=== PATIENT | female | born 1995 | race Caucasian/White ===

== ENCOUNTER 2017-01-17 20:51 | Emergency (ER) | payer SELFPAY ==
[~2017-01-17] VITALS: Ht 165.1 cm; Wt 63.6 kg
[2017-01-17] MEDS ORDERED: PREN-134 PO (21:02)
[2017-01-17 21:30] LABS: BASOPHILS % (AUTO) 0.3 % (0.0-2.0); EOSINOPHILS % (AUTO) 0.9 % (1.0-6.0); HEMATOCRIT 39.9 % (36-46); HEMOGLOBIN 13.7 g/dL (12.0-16.0); LYMPHOCYTES # (AUTO) 2.6 K/uL (1.0-4.8); LYMPHOCYTES % (AUTO) 24.5 % (22.0-44.0); MEAN CORPUSCULAR HEMOGLOBIN 31.4 pg (26.0-34.0); MEAN CORPUSCULAR HGB CONC 34.3 G/dL (31.0-37.0); MEAN CORPUSCULAR VOLUME 91 fL (80-100); MONOCYTES # (AUTO) 0.6 K/uL (0.1-1.0); MONOCYTES % (AUTO) 5.6 % (2.0-9.0); NEUTROPHILS # (AUTO) 7.3 K/uL (1.8-7.7); NEUTROPHILS % (AUTO) 68.7 % (40.0-70.0); RED BLOOD CELL COUNT(AUTO) 4.36 MIL/uL (4.00-5.20); RED CELL DISTRIBUTION WIDTH 12.2 % (11.5-14.5); WHITE BLOOD COUNT (AUTO) 10.6 K/uL (4.5-11.0)
[2017-01-17 21:53] LABS: PLATELET COUNT (AUTO) 149 K/uL (150-450)
[2017-01-17 22:07] LABS: APPEARANCE,URINE CLEAR (CLEAR); GLUCOSE, URINE (UA) NEGATIVE (NEGATIVE); KETONES,URINE NEGATIVE (NEGATIVE); LEUKOCYTE ESTERASE ,URINE NEGATIVE (NEGATIVE); OCCULT BLOOD,URINE TRACE (NEGATIVE); PROTEIN,URINE NEGATIVE (NEGATIVE)
[2017-01-17 22:09] LABS: ADD UA MICROSCOPIC YES
[2017-01-17 22:26] LABS: SQUAMOUS EPITHELIAL CELL,UR Few /LPF (None Seen)
[2017-01-17 22:28] LABS: RBC,URINE 0-2 /HPF (0-2); WBC,URINE 0-2 /HPF (0-5)
[2017-01-17 23:33] VITALS: BP 109/63
== END 2017-01-17 23:34 | disposition home or self-care (01) ==
LOC: EMS 20:54
DX: O26.891 Other specified pregnancy related conditions, first trimester (principal); R35.0 Frequency of micturition; Z3A.09 9 weeks gestation of pregnancy
CPT/HCPCS: 76801; 76817; 86901; 99285

== ENCOUNTER 2020-01-20 00:40 | Emergency (ER) | payer OTHER ==
[~2020-01-20] VITALS: Ht 167.6 cm; Wt 100.0 kg
[~2020-01-20 00:40] MED LIST: PREN-134 PO
[2020-01-20 00:42] VITALS: BP 102/70
[2020-01-20] MEDS ORDERED: IPRA4AER IH (01:38)
[2020-01-20] MEDS ORDERED: CEPHALEXIN MONOHYDRATE 500 MG CAPSULE PO ONE (02:45)
[2020-01-20] MEDS ORDERED: IBUPROFEN 600 MG TABLET PO ONE (02:45)
== END 2020-01-20 03:14 | disposition home or self-care (01) ==
LOC: EMS 00:40
DX: S93.401A Sprain of unspecified ligament of right ankle, initial encounter (principal); S80.861A Insect bite (nonvenomous), right lower leg, initial encounter; J45.909 Unspecified asthma, uncomplicated; Z91.018 Allergy to other foods; Z79.899 Other long term (current) drug therapy; X50.1XXA Overexertion from prolonged static or awkward postures, initial encounter; W57.XXXA Bitten or stung by nonvenomous insect and other nonvenomous arthropods, initial encounter; Y93.89 Activity, other specified; Y92.89 Other specified places as the place of occurrence of the external cause; Y99.8 Other external cause status
CPT/HCPCS: 29540

== ENCOUNTER 2020-06-19 14:41 | Emergency (ER) | payer OTHER ==
[~2020-06-19] VITALS: Ht 170.2 cm; Wt 84.1 kg
[~2020-06-19 14:41] MED LIST changes: +IPRA4AER IH
[2020-06-19 15:48] LABS: BASOPHILS % (AUTO) 0.7 % (0.0-2.0); EOSINOPHILS % (AUTO) 1.7 % (1.0-6.0); HEMATOCRIT 40.2 % (36-46); HEMOGLOBIN 13.7 g/dL (12.0-16.0); LYMPHOCYTES # (AUTO) 2.3 K/uL (1.0-4.8); LYMPHOCYTES % (AUTO) 31.4 % (22.0-44.0); MEAN CORPUSCULAR HEMOGLOBIN 30.7 pg (26.0-34.0); MEAN CORPUSCULAR HGB CONC 34.2 G/dL (31.0-37.0); MEAN CORPUSCULAR VOLUME 90 fL (80-100); MONOCYTES # (AUTO) 0.5 K/uL (0.1-1.0); MONOCYTES % (AUTO) 6.4 % (2.0-9.0); NEUTROPHILS # (AUTO) 4.4 K/uL (1.8-7.7); NEUTROPHILS % (AUTO) 59.8 % (40.0-70.0); PLATELET COUNT (AUTO) 152 K/uL (150-450); RED BLOOD CELL COUNT(AUTO) 4.48 MIL/uL (4.00-5.20); RED CELL DISTRIBUTION WIDTH 12.6 % (11.5-14.5)
[2020-06-19] MEDS ORDERED: FAMOTIDINE 20 MG TABLET PO ONE (16:00)
[2020-06-19] MEDS ORDERED: IBUPROFEN 600 MG TABLET PO ONE (16:00)
[2020-06-19] MEDS ORDERED: LIDOCAINE 5% TRANSDERMAL PATCH TD ONE (16:00)
[2020-06-19 16:05] LABS: ANION GAP 10 mmol/L (8-16); CARBON DIOXIDE 25 mmol/L (22-29); CHLORIDE 104 mmol/L (98-107); CREATININE 0.58 mg/dL (0.60-1.30); GLOMERULAR FILTR. RATE CALC > 60 mL/min (>60); GLUCOSE,RANDOM 112 mg/dL (70-110); POTASSIUM 3.8 mmol/L (3.5-5.1); SODIUM SERUM 139 mmol/L (136-145); UREA NITROGEN, BLOOD 12 mg/dL (7-18)
[2020-06-19 16:10] LABS: PLATELET MORPHOLOGY COMMENT GIANT PLTS PRESENT
[2020-06-19 16:11] LABS: ALANINE AMINOTRANSFERASE 68 U/L (12-78); ALBUMIN 3.8 g/dL (3.4-5.0); ALKALINE PHOSPHATASE 59 U/L (46-116); ASPARTATE AMINOTRANSFERASE 28 U/L (15-37); BILIRUBIN,TOTAL 0.2 mg/dL (0.1-1.0); TOTAL PROTEIN, SERUM 7.4 g/dL (6.4-8.2)
[2020-06-19 17:00] VITALS: BP 122/80
== END 2020-06-19 17:02 | disposition home or self-care (01) ==
LOC: EMS 14:56
DX: R07.89 Other chest pain (principal); F17.210 Nicotine dependence, cigarettes, uncomplicated; J45.909 Unspecified asthma, uncomplicated; Z91.018 Allergy to other foods
CPT/HCPCS: 93005; 99285; 36415-L1; 36415-TC; 71045-TC

== ENCOUNTER 2020-11-07 18:11 | Emergency (ER) | payer OTHER ==
[~2020-11-07] VITALS: Ht 167.6 cm; Wt 95.5 kg
[~2020-11-07 18:11] MED LIST changes: -PREN-134 PO
[2020-11-07 18:17] VITALS: BP 115/68
[2020-11-07] MEDS ORDERED: ACETAMINOPHEN 500 MG TABLET PO ONE (20:15)
[2020-11-07] MEDS ORDERED: IBUPROFEN 600 MG TABLET PO ONE (20:15)
== END 2020-11-07 20:45 | disposition home or self-care (01) ==
LOC: EMS 18:11
DX: S16.1XXA Strain of muscle, fascia and tendon at neck level, initial encounter (principal); S13.8XXA Sprain of joints and ligaments of other parts of neck, initial encounter; S29.012A Strain of muscle and tendon of back wall of thorax, initial encounter; F17.210 Nicotine dependence, cigarettes, uncomplicated; J45.909 Unspecified asthma, uncomplicated; V49.9XXA Car occupant (driver) (passenger) injured in unspecified traffic accident, initial encounter; Y93.89 Activity, other specified; Y92.488 Other paved roadways as the place of occurrence of the external cause; Y99.8 Other external cause status
CPT/HCPCS: 72070; 99283